=== PATIENT | male | born 1950 | race Caucasian/White ===

== ENCOUNTER 2016-08-21 14:45 | Inpatient (IN) | payer OTHER, MEDICARE ==
[~2016-08-21] VITALS: Ht 182.9 cm; Wt 150.8 kg
[2016-08-21] VITALS (9 sets, daily range): BP systolic 153–213; BP diastolic 78–107; PULSE 88–100; RESP 16–25; O2SAT 92–97
[~2016-08-21 14:45] MED LIST: ASPI-973 PO; BUPR300T52 PO; CAL1TABL5 PO; CLON0.1T PO; DOCU250C2 PO; DOXA2TAB52 PO; FLUT9.9S NS; GLIP10TA10 PO; HYDR25CA PO; HYDR2TAB27 PO; INSLIS SUBQ; INSU100V7 SUBQ; LANS30CA14 PO; MAGN400C PO; METF850T2 PO; MTH10T PO; NYST1POW25 TOPICAL; PREG150C PO; ROSU5TAB PO; TORS20TA3 PO; VALS160T2 PO
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
[2016-08-21] MEDS ORDERED: 0.9% Sodium Chloride 500 ML IV ONE (15:20)
[2016-08-21 15:53] LABS: BASOPHILS % (AUTO) 0.1 % (0-3); EOSINOPHILS % (AUTO) 0 % (0-5); MONOCYTES % (AUTO) 5.6 % (4-12); Mean Corpuscular Volume 86.1 fL (81-100); NEUTROPHILS % (AUTO) 91.4 % (40-74); Platelet Count 223 bil/L (150-400)
--- NOTE | 2016-08-21 16:11 | DRSVH ---
PROCEDURE: X-RAY CHEST ONE VIEW, PORTABLE ([id number]) INDICATIONS: dyspnea, cough, chills, sputum TECHNIQUE: One view of the chest was acquired. COMPARISON: [facility], CR, CHEST 1VW (PORTABLE), 09/17/2013, 16:21. [facility], CR, XR CHEST 2VW, 03/12/2016, 7:42. [facility], CR, XR CHEST 2VW, 03/11/2016, 7:53. FINDINGS: Surgical changes and devices: None. Lungs and pleura: No pleural effusions or pneumothorax. Lungs are clear. Mild increased pulmonary vascularity. Mediastinum: Mediastinal contours appear normal. Heart size is normal. Bones and chest wall: No suspicious bony lesions. Overlying soft tissues appear unremarkable. IMPRESSION: Mild increased pulmonary vascularity suggestive of edema. Dictated by: Luciana Nguyen M.D. on 08/21/2016 at 16:07 Approved by: Luciana Nguyen M.D. on 08/21/2016 at 16:10
[2016-08-21 16:29] LABS: TROPONIN T < 0.010 ug/L (0.0-0.011)
[2016-08-21] MEDS ORDERED: 0.9% Sodium Chloride 1,000 ML IV ONE (16:30)
[2016-08-21] MEDS ORDERED: Azithromycin Inj 500 MG in Dextrose 5% w/Vial Mate 250 ML IV ONE (16:30)
[2016-08-21] MEDS ORDERED: cefTRIAXone Inj 2,000 MG in Dextrose 5% Minibag Plus 50 ML IV ONE (16:30)
[2016-08-21 16:41] LABS: Magnesium 1.8 mg/dL (1.6-2.6)
[2016-08-21] MEDS ORDERED: Insulin Human REGular-Omnicell 100 Unit/mL IV ONE (16:50)
[2016-08-21 16:57] LABS: APPEARANCE,URINE CLEAR (CLEAR,HAZY); COLOR,URINE YELLOW (YELLOW); OCCULT BLOOD,URINE NEGATIVE (NEGATIVE); UROBILINOGEN,URINE NORMAL (NORMAL)
[2016-08-21] MEDS ORDERED: Dextrose 50% Water 50 mL Inj IV ONE (17:35)
--- NOTE | 2016-08-21 17:46 | DRSVH ---
PROCEDURE: CT CHEST, ABDOMEN AND PELVIS WITH CONTRAST ([id number]) INDICATIONS: severe sepsis, cough sputum, vomiting TECHNIQUE: After the administration of intravenous contrast, 5 mm thick sections acquired from the lung apices t o the symphysis. 5 mm thick coronal and sagittal reformats were acquired. Additional 7 mm thick cor onal maximum intensity projection (MIP) reformats acquired through the lungs. Optional 10-minute del ayed imaging may be performed from the kidneys to the bladder. For radiation dose reduction, the fol lowing was used: automated exposure control, adjustment of mA and/or kV according to patient size. COMPARISON: [facility], CT, ABD/PELVIS W&WO CON (PN), 12/18/2011, 13:05. FINDINGS: Image quality: Excellent. CHEST: Lungs: No pulmonary contusions or lacerations. No acute airspace opacities. No pneumothorax or hem othorax. Central and peripheral airways appear patent and normal in caliber. Mediastinum: No mediastinal hematomas. Heart size is normal. No pericardial effusion. Thoracic ao rta and pulmonary arteries demonstrate normal size and enhancement. No mediastinal or hilar adenopat hy. Esophagus is normal in caliber. No hiatal hernia. Chest wall: No rib fractures. No subcutaneous emphysema. No axillary or supraclavicular adenopathy . Thyroid gland is within normal limits. ABDOMEN: Solid organs: Liver is enlarged, and demonstrates diffusely decreased density. Spleen is within norm al limits. Gallbladder is within normal limits. Biliary system is non-dilated. Pancreas enhances no rmally, without transection. No adrenal hematomas. Both kidneys enhance normally, without hydroneph rosis or lacerations. Peritoneum and bowel: No free fluid or air. Unenhanced bowel loops demonstrate normal wall thicknes s and caliber. Nodes and vessels: No change in 14 mm short axis preaortic lymph node. No change in mildly prominent left iliac chain lymph node enlargement measuring 12 mm short axis. No change in mildly prominent le ft distal iliac chain lymph node enlargement measuring 13 mm short axis. No change in 13 mm short axi s right distal iliac chain lymph node enlargement. Aorta and inferior vena cava are normal in size an d enhancement. Miscellaneous: No ventral hernias. No change in 47 mm diameter low-density focus in the umbilical r egion. PELVIS: Genitourinary: Bladder wall thickness is normal. Miscellaneous: No inguinal hernias or adenopathy. Bones: Pelvic ring and hip joints appear intact. No vertebral compression fractures. IMPRESSION: 1. No acute process. 2. No explanation for sepsis. 3. No significant change in mild lymph node enlargement within the retroperitoneum and along the bila teral iliac chains. 4. No change in umbilical soft tissue density. Dictated by: Jay Braxton M.D. on 08/21/2016 at 17:39 Approved by: Jay Braxton M.D. on 08/21/2016 at 17:44
[2016-08-21] MEDS ORDERED: Ondansetron 2 mg/mL 2 mL Inj IVPUSH PRN ×2 (18:00→18:40)
[2016-08-21] MEDS ORDERED: 0.9% Sodium Chloride 1,000 ML IV SCH ×2 (18:00→18:39)
[2016-08-21] MEDS ORDERED: Alum-Mag Hydrox-Simeth 30 mL Suspension PO PRN (18:00)
[2016-08-21] MEDS ORDERED: Polyethylene Glycol (PEG) 17 Gm Powder PO PRN (18:40)
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
[2016-08-21] MEDS ORDERED: hydrOXYzine Pamoate 25 mg Capsule PO PRN (19:35)
[2016-08-21] MEDS ORDERED: Fluticasone 0.05% 15 Spray/2 Gm 16 Gm Nasal Spray NASAL PRN (19:35)
[2016-08-21] MEDS ORDERED: Methadone 10 mg/mL Oral Concentrate PO SCH (20:20)
--- NOTE | 2016-08-21 20:23 | ABG ---
DateTimeAnalyzed 20:19:00 -_ pH ____7.420 - 7.350 7.450 pCO2 ___37.6__ -mmHg 35.0 45.0 pO2 ___72.0__ -mmHg 69.0 116 HCO3- ___23.9__ -mmol/L 22.0 26.0 ABE ____0.2__ -mmol/L -2.0 2.0 tHb ___13.6__ -g/dL O2Hb ___92.3__ -% COHb ____1.5__ -% MetHb ____1.0__ -% sO2 ___94.7__ -% 25.0 FIO2 ___21.0__ -% Drawn By blf - Date/Time Notified____ 20:22:00 -_ Spontaneous_RR ___30.0__ -b/min Oxygen Device 1 _ROOM AIR - Notified By blf - Notified Whom Yousuf Jeremie RN - B 762 -mmHg tO2 ___17.7__ -Vol% Nate test _Positive -
--- NOTE | 2016-08-21 21:00 | NUR ---
Transfer to CCU Pt transferred to CCU, report given to Arely Reynolds RN.
[2016-08-21] MEDS: 0.9% Sodium Chloride 1,000 ML IV SCH (21:44)
[2016-08-21] MEDS: Nystatin 100,000 Unit/Gm 15 Gm Powder TOPICAL SCH (21:45)
[2016-08-21] MEDS: cloNIDine 0.1 mg Tablet PO SCH (21:45)
[2016-08-21] MEDS: Pantoprazole 40 mg ER24 Tablet PO SCH (21:47)
[2016-08-21] MEDS: Heparin 5,000 Unit/mL Inj SUBQ SCH (21:53)
[2016-08-21] MEDS: Insulin GLARgine 100 Unit/mL Syringe SUBQ SCH (21:58)
[2016-08-22] VITALS (11 sets, daily range): BP systolic 141–173; BP diastolic 63–84; PULSE 60–88; RESP 17–26; O2SAT 93–98
[2016-08-22] MEDS ORDERED: Labetalol 5 mg/mL 4 mL Inj IVPUSH ONE
[2016-08-22] MEDS: Insulin Human REGular 300 Unit/3 mL Inj SUBQ SCH ×4 (00:17→13:18)
[2016-08-22] MEDS: Sodium Chloride LOK Flush 10 mL Syringe IVFLUSH SCH ×4 (00:44→21:35)
--- NOTE | 2016-08-22 02:52 | NUR ---
Admit Transfer from [facility] to CCU approx 2100 accompanied by spouse. Drowsy, restless. Denies pain, dyspnea, N/V. AX temp 39.3. Tele SR/ST. RA sat mid 90s. Some spillage and incontinence w/ urinal. Mendez placed. Tylenol and kayexalate given. 2 person assist to BSC. Flatus, no stool. Most of admit done w/ spouse. Spouse has gone home and pt dose not know meds/doses.
[2016-08-22 03:35] LABS: BASOPHILS % (AUTO) 0.1 % (0-3); EOSINOPHILS % (AUTO) 0 % (0-5); MONOCYTES % (AUTO) 5.2 % (4-12); Mean Corpuscular Hemoglobin 27.8 pg (27.0-35.0); Mean Corpuscular Volume 87.5 fL (81-100); NEUTROPHILS % (AUTO) 90.2 % (40-74); Platelet Count 179 bil/L (150-400)
[2016-08-22 04:20] LABS: Magnesium 1.9 mg/dL (1.6-2.6)
[2016-08-22] MEDS: Heparin 5,000 Unit/mL Inj SUBQ SCH ×3 (05:20→21:33)
[2016-08-22] MEDS: Pantoprazole 40 mg ER24 Tablet PO SCH ×2 (06:51→21:33)
--- NOTE | 2016-08-22 07:49 | NUR ---
P: Dyspnea I: 2L NC, position changes E: More alert in AM hours. Temperature elevated and after tylenol 37.2 AX. c/o foot discomfort and general bed discomfort. Receive dilaudid, methadone, and tylenol. Position changes and pillow elevations. Tele SR, 1st AVB. High BP. PO labetolol given, moderate high BP after. UOP shantelle/orange. Taking in clear liquid fluids. Two BMs in response to kayexalate. Two person assist to BSC along w/ pt using his crutch. c/o dyspnea more in AM hours. Bed position changes and helpful when up to BSC. Able to take better breathes. No desaturations. Pt did not tolerate bipap/cpap "too much area". No desaturation on 2L NC but sleep apnea noted.
[2016-08-22] MEDS: 0.9% Sodium Chloride 1,000 ML IV SCH ×2 (07:59→21:37)
--- NOTE | 2016-08-22 08:37 | NUR ---
transfer 0745 orders received to transfer pt out of CCU
[2016-08-22] MEDS: Azithromycin Inj 500 MG in Dextrose 5% w/Vial Mate 250 ML IV SCH (08:46)
[2016-08-22] MEDS: cefTRIAXone Inj 2,000 MG in Dextrose 5% Minibag Plus 50 ML IV SCH (08:47)
[2016-08-22] MEDS: cloNIDine 0.1 mg Tablet PO SCH ×2 (08:47→21:32)
[2016-08-22] MEDS: Nystatin 100,000 Unit/Gm 15 Gm Powder TOPICAL SCH ×2 (08:47→21:33)
[2016-08-22] MEDS: buPROPion XL 300 mg ER24 Tablet PO SCH (08:49)
--- NOTE | 2016-08-22 09:24 | DRSVH ---
PROCEDURE: X-RAY CHEST ONE VIEW, PORTABLE ([id number]) INDICATIONS: prominent interstitium, fluid overload TECHNIQUE: One view of the chest was acquired. COMPARISON: [facility], CT, CT CHEST ABD PELVIS W CON, 08/21/2016, 17:01. FINDINGS: Surgical changes and devices: None. Lungs and pleura: No pleural effusions or pneumothorax. Pulmonary vasculature is present and there is mild pulmonary edema. Mediastinum: Mediastinal contours appear normal. Heart size is mildly enlarged. Bones and chest wall: No suspicious bony lesions. Overlying soft tissues appear unremarkable. IMPRESSION: Mild edema. Dictated by: Michael Bolton RR Interpreted: Kingston Burrows MD on 08/22/2016 at 9:24 Transcribed by: DOMINGA on 08/22/2016 at 9:24 Approved by: Kingston Burrows M.D. on 08/22/2016 at 10:10
--- NOTE | 2016-08-22 10:26 | NUR ---
Evaluation completed. Please go to "Notes" then click on "Assessments and Notes" (bottom left corner of screen). Then select appropriate discipline tab on top of screen.
[2016-08-22] MEDS ORDERED: LORA10CA PO (12:11)
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
--- NOTE | 2016-08-22 14:16 | NUR ---
bed bath pt given complete bed bath with shampoo cap. Pt nathaniel well. Spoke with Dr Austin about increasing insulin. Orders received.
[2016-08-22] MEDS: Insulin LISPRO 300 Unit/3 mL Inj SUBQ SCH ×2 (16:25→21:35)
--- NOTE | 2016-08-22 17:49 | NUR ---
respiratory/pannus red/ high bg Pt has declined to wear bipap or tillogy mask all day. States they make him claustraphobic. Pt pannus is red and inflammed. Dr Rosas observes and counsels pt on wearing trillogy tonight. Dr Rosas outlines redness himself and counsels pt on diabetic diet and lifestyle changes. Pt last bg 301, insulin given as ordered. Dr Rosas aware of bg.
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
[2016-08-22] MEDS: Insulin GLARgine 100 Unit/mL Syringe SUBQ SCH (21:34)
[2016-08-23 00:36] VITALS: BP 157/67; PULSE 64; RESP 17; O2SAT 96
[2016-08-23 03:09] LABS: BASOPHILS % (AUTO) 0.2 % (0-3); EOSINOPHILS % (AUTO) 0.7 % (0-5); MONOCYTES % (AUTO) 8.9 % (4-12); Mean Corpuscular Hemoglobin 27.8 pg (27.0-35.0); Mean Corpuscular Volume 88.9 fL (81-100); NEUTROPHILS % (AUTO) 76.5 % (40-74); Platelet Count 179 bil/L (150-400)
[2016-08-23 04:52] VITALS: BP 158/63; PULSE 79; RESP 16; O2SAT 96
--- NOTE | 2016-08-23 05:34 | NUR ---
Respiratory Pt on 2L NC throughout shift; no use of Trilogy this HS, but SpO2 mostly stable at approx. 94-96%. Frequent dips to 80s with spontaneous recovery instantly. Pt c/o pain at HS; Dilaudid and methadone administered; no further complaints throughout shift, pt able to rest. VSS, tele SR 70s-80s with frequent PVCs and bigeminy/trigeminy per potline monitor. aware, no new orders placed.
[2016-08-23] MEDS: Heparin 5,000 Unit/mL Inj SUBQ SCH ×2 (06:37→13:00)
[2016-08-23] MEDS: Pantoprazole 40 mg ER24 Tablet PO SCH (06:37)
[2016-08-23 07:28] VITALS: BP 171/54; PULSE 87; RESP 21; O2SAT 95
[2016-08-23] MEDS: cefTRIAXone Inj 2,000 MG in Dextrose 5% Minibag Plus 50 ML IV SCH (07:42)
[2016-08-23] MEDS: Azithromycin Inj 500 MG in Dextrose 5% w/Vial Mate 250 ML IV SCH (09:23)
[2016-08-23] MEDS: buPROPion XL 300 mg ER24 Tablet PO SCH (09:26)
[2016-08-23] MEDS: cloNIDine 0.1 mg Tablet PO SCH (09:26)
[2016-08-23] MEDS: Sodium Chloride LOK Flush 10 mL Syringe IVFLUSH SCH (09:27)
[2016-08-23] MEDS: Insulin LISPRO 300 Unit/3 mL Inj SUBQ SCH ×2 (09:30→12:35)
[2016-08-23] MEDS: Nystatin 100,000 Unit/Gm 15 Gm Powder TOPICAL SCH (09:30)
[2016-08-23] MEDS: 0.9% Sodium Chloride 1,000 ML IV SCH (10:39)
[2016-08-23 11:13] VITALS: PULSE 87
--- NOTE | 2016-08-23 13:51 | NUR ---
Social Work Note: Discharge Data& Assessment: Per pt is medically ready for discharge. Eber Barrera is a 66 year old male admitted on 08/21/2016 for sepsis and pneumonia. Per pt is medically improved and ready for discharge. Per and RN, pt has been transferred from IV to P.O. medications. SW met with pt at bedside to confirm discharge plan and assess for any unmet needs. 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 Pt states he feels like he is close to his baseline and did not find home health PT helpful in the past. Pt confirmed his oxygen and trilogy machine is through [employer], SW notified them of pt discharge. [employer] explained they will follow up with pt and pt and plan a home follow up visit. Pt to transport home today. Pt denies any other needs. No other needs identified. Plan: Per pt is medically improved and ready to discharge home via POV. [employer] to follow up with pt and pt for follow up home visit. Pt declines home health or any other resources. Pt denies any other needs. No other needs identified. MANUEL Camacho
--- NOTE | 2016-08-23 13:53 | PCM.DIMED ---
KhariClarkeanita Lanza DO 08/23/16 1020: Discharge Instructions Date of Service August 23, 2016 Dates of Hospitalization August 21, 2016 at 18:14 Discharge Diagnosis Discharge Diagnosis Cellulitis, Sepsis Medication Instructions Take Keflex 500mg PO BID for 5 days Test Results Laboratory Tests Test 08/22/16 16:23 08/22/16 18:50 08/23/16 02:55 Lactic Acid Level 1.7mmol/L (0.4-2.0) 2.4mmol/L (0.4-2.0) White Blood Count 9.7th/mm3 (3.8-10.1) Red Blood Count 4.32mil/mm3 (4.40-5.80) Hemoglobin 12.0g/dL (13.8-17.2) Hematocrit 38.4% (41.0-50.0) Mean Corpuscular Volume 88.9fL (81-100) Mean Corpuscular Hemoglobin 27.8pg (27.0-35.0) Mean Corpuscular Hemoglobin Concent 31.3% (32.0-37.0) Red Cell Distribution Width 15.3% (12.3-15.4) Platelet Count 179bil/L (150-400) Neutrophils (%) (Auto) 76.5% (40-74) Lymphocytes (%) (Auto) 13.3% (14-46) Monocytes (%) (Auto) 8.9% (4-12) Eosinophils (%) (Auto) 0.7% (0-5) Basophils (%) (Auto) 0.2% (0-3) Sodium Level 133mEq/L (134-144) Potassium Level 4.6mEq/L (3.5-5.2) Chloride Level 96mEq/L (97-108) Carbon Dioxide Level 24mmol/L (18-29) Blood Urea Nitrogen 19mg/dL (8-27) Creatinine 1.06mg/dL (0.76-1.27) Estimat Glomerular Filtration Rate 74mL/min (>59) Glucose Level 290mg/dL (60-99) Calcium Level 8.0mg/dL (8.5-10.1) Total Bilirubin 0.4mg/dL (0.0-1.2) Aspartate Amino Transf (AST/SGOT) 12U/L (0-50) Alanine Aminotransferase (ALT/SGPT) 11U/L (0-44) Alkaline Phosphatase 99U/L (25-160) Total Protein 5.7g/dL (6.4-8.4) Albumin 3.0g/dL (3.4-5.0) Procalcitonin 1.08ng/mL (0.00-0.08) Microbiology 08/21/16 Blood Culture - Preliminary, Resulted NO GROWTH AFTER 24 HOURS 08/21/16 Sputum Quality Screen - Final, Resulted 08/21/16 Sputum Culture - Preliminary, Resulted LIGHT NORMAL TALIB PRESENT 08/21/16 Streptococcus pneumoniae Ag Screen - Final, Complete Diet Diabetic Activity No restrictions Call your provider Fever or Chills, Shortness of breath, Bleeding, Chest pain, Vomitting, Excessive diarrhea, Weakness (unilateral) Patient Instructions Take Keflex 500mg twice a day for five days. Start taking care of your health! Remember the book recommended by Dr Rosas: "The Diabetes Solution" by Dr Casper Wiseman MD When you change your diet you will need to cut back on insulin. Please do this with the supervision of your doctor! After a month of getting the dietary changes into your habit life, do start exercising. The pool at the [facility] in [facility] is excellent and affordable. They have classes in the pool every day for people who have arthritis and difficulty with walking. You can do it! Follow-up plan Follow up with PCP for lifestyle changes. Follow-up Provider: Precious Barriga PAC Follow-up with PCP in: 1 week Ranjit Rosas MD 08/23/16 1746: Discharge Instructions Attending's Statement The patient was seen and examined together with Dr. Lucia on 08/23/2016 and I agree with the history, exam and plan as outlined in the note above. . Clarke Lucia DO August 23, 2016 10:20 Ranjit Rosas MD August 23, 2016 17:46
[2016-08-23] MEDS ORDERED: CEPH-512 PO (13:56)
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
[2016-08-23] MEDS ORDERED: Nystatin 100,000 Unit/Gm 15 Gm Powder TOPICAL SCH (15:45)
[2016-08-23] MEDS ORDERED: Insulin LISPRO 300 Unit/3 mL Inj SUBQ SCH (15:45)
--- NOTE | 2016-08-23 16:25 | NUR ---
Discharge Pt discharged home at 1620 today. 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 Pt was provided with a prescription for antibiotics, education materials on antibiotics, and follow up instructions with PCP. Pt left highly motivated to make lifestyle changes. Meds were relabled in pharmacy for home use.
== END 2016-08-23 16:20 | disposition home or self-care (01) | DRG 871 ==
LOC: SED 14:45 → PCC 18:14 → UNDOADMIN 18:14 → PCC 19:07 → CCU 20:39 → PCC 08-22 09:04
PROVIDERS: ADMIT Internal Medicine; ATTEND Internal Medicine
PROC: 4A033R1 Measurement of Arterial Saturation, Peripheral, Percutaneous Approach (ICD-10-PCS; principal; 2016-08-21)
DX: A41.9 Sepsis, unspecified organism (principal); J18.9 Pneumonia, unspecified organism; Z68.42 Body mass index [BMI] 45.0-49.9, adult; F11.20 Opioid dependence, uncomplicated; E87.1 Hypo-osmolality and hyponatremia; E87.2 Acidosis; L03.311 Cellulitis of abdominal wall; I42.9 Cardiomyopathy, unspecified; J44.9 Chronic obstructive pulmonary disease, unspecified; I10 Essential (primary) hypertension; Z79.4 Long term (current) use of insulin; Z87.891 Personal history of nicotine dependence; E66.01 Morbid (severe) obesity due to excess calories; G89.29 Other chronic pain; E11.65 Type 2 diabetes mellitus with hyperglycemia; G47.33 Obstructive sleep apnea (adult) (pediatric); F32.9 Major depressive disorder, single episode, unspecified